=== PATIENT | male | born 2005 | race Caucasian/White ===

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

== ENCOUNTER 2025-04-13 12:20 | Outpatient (CLI) | payer MEDICAID, SELFPAY | END 2025-04-13 12:21 | disposition home or self-care (01) | LOC: SLEEP 12:22 | PROVIDERS: PCP Nurse Practitioner Family; Referring Provider Nurse Practitioner Family; Visit Provider Internal Medicine Pulmonary Disease | DX: G47.33 Obstructive sleep apnea (adult) (pediatric) (principal) | CPT/HCPCS: G0399 ==